=== PATIENT | male | born 1945 | race Caucasian/White ===

== ENCOUNTER 2019-03-01 13:24 | Inpatient (IN) ==
[~2019-03-01 13:24] MED LIST: Insulin NPH 100 UNIT/ML (x5UNIT) SQ SCH
[2019-03-01] MEDS ORDERED: 0.9 % Sodium Chloride 1,000 ML IVC ONE (14:08)
--- NOTE | 2019-03-01 14:13 | Emergency Department Note ---
Disposition Clinical Impression: Acute febrile illness, Weakness generalized Disposition: Home, Self-Care Condition: Fair Referrals: NONE,PCP [Non-Partnered Physician] - Forms: ED Satisfaction Letter Time of Disposition: 16:25 Weakness HPI - General Chief complaint: ED Weakness Stated complaint: weakness Time Seen by Provider: 03/01/19 14:00 Source: patient, family Mode of arrival: private vehicle Limitations: no limitations Nursing Notes Reviewed: Yes Vital Signs Reviewed: Yes - History of Present Illness Pt Subjective Complaint: generalized weakness/fatigue Onset (ago): day(s) (This is the third day) Duration: constant, gradually worsening Location: generalized Pain Severity: none Pain Scale: 0 Improves with: none Worsens with: exertion Associated symptoms: Reports: fever/chills (Has not noted any fevers at home but complains of chills. This morning had an episode of diffuse body shaking that he could not control. This was witnessed by family members.) - Related Data Allergies Allergy/AdvReac Type Severity Reaction Status Date / Time Unable to Assess Allergy Unverified 03/01/19 14:38 All systems ED: reviewed and negative except as stated. Constitutional: Reports: chills. Denies: fever ENT ED: Denies: ear pain, throat pain, congestion Cardiovascular: Denies: chest pain, palpitations, dyspnea on exertion Respiratory: Denies: cough, dyspnea Gastrointestinal: Denies: abdominal pain, nausea, vomiting, diarrhea Genitourinary: Reports: frequency Musculoskeletal: Denies: back pain Integumentary: Denies: rash Neurological: Reports: weakness (Generalized). Denies: headache Past Medical History - Past Medical History Attestation: Yes The following information was validated with the patient. Source: patient, old records reviewed, obtained from family, nursing notes reviewed Medical history: Reports: diabetes, myocardial infarction, other Psychiatric history: Reports: no psych history - Social History Smoking Status: Former smoker Smokeless Tobacco Status: No Alcohol use: Reports: rarely Drug use: Reports: none Physical Exam - General General appearance: alert, in no apparent distress - Head Head exam: atraumatic, normocephalic, normal inspection - Eye Eye exam: Present: normal appearance, PERRL, EOMI. Absent: scleral icterus, conjunctival injection - ENT ENT exam: normal exam, normal oropharynx, mucous membranes moist, TM's normal bilaterally, normal external ear exam - Neck Neck exam: Present: normal inspection, full ROM, trachea midline. Absent: tenderness, meningismus - Chest Chest inspection: Present: normal inspection, symmetric chest wall rise. Absent: tenderness - Respiratory Respiratory exam: Present: normal lung sounds bilaterally. Absent: respiratory distress, wheezes - Cardiovascular Cardiovascular exam: Present: normal rhythm, tachycardia, normal heart sounds - Abdominal Exam Abdominal exam: Present: soft, tenderness, normal bowel sounds. Absent: distention Abdominal tenderness: Present: LUQ, moderate - Extremities Exam Extremities exam: Present: normal inspection. Absent: pedal edema - Neurological Exam Neurological exam: Present: alert, oriented X3. Absent: motor sensory deficit - Psychiatric Psychiatric exam: Present: normal affect, normal mood - Skin Skin exam: Present: warm, dry. Absent: rash Course Course Narrative: Patient presents with generalized weakness over the past 3 days. Briskly worsening. Yesterday he had a hard time getting himself out of bed. This morning he said he could not get himself out of bed, although he did ambulate here with a cane. This morning he had what sounds like rigors. He does not complain of any focus of an infection other than having increased urinary freque ncy. He says he did urinate on himself in bed yesterday but it was because he felt too weak to get up and get to the bathroom. I am going to give him some IV fluids. I am going to do a weakness workup. I will CT his abdomen because although he complained of no abdominal pain, he had left upper quadrant tenderness on examination. Disposition will be based on diagnostic results and reevaluation. - Reevaluation(s) Reevaluation #1: Rectal temperature turned out to be 102.2. We will continue evaluation for source of infection. Time: 14:19 Reevaluation #2: Patient's workup has come back negative. Except for elevated lactate of 3.3. X-ray is clear. Somehow the urinalysis is negative although the patient's urine was cloudy and smelled and is got fever and chills and urinary symptoms and left-sided CVA tenderness. I talked with the hospitalist and we are to admit the patient to the hospital because he is so weak he is not able to get up and go to the bathroom so that he is urinating on himself so he definitely needs to be admitted and watched. Perhaps cultures will reveal answers. Time: 16:25 - Consultations Consultation #1: Dr. Sears, hospitalist - I discussed case with the hospitalist. That the patient for admission. Time: 16:24 Vital Signs Temperature 98.5 F 03/01/19 13:27 Pulse Rate 113 03/01/19 13:27 Respiratory Rate 22 03/01/19 13:27 Blood Pressure 182/67 03/01/19 13:27 O2 Sat by Pulse Oximetry 95 03/01/19 13:27 Temperature 98.5 F 03/01/19 13:27 Pulse Rate 103 03/01/19 15:59 Respiratory Rate 22 03/01/19 15:59 Blood Pressure 104/67 03/01/19 15:59 O2 Sat by Pulse Oximetry 96 03/01/19 15:59 Oxygen Delivery Oxygen Delivery Room Air Weakness - Medical Records Medical records reviewed: Yes I reviewed the patient's medical records. - Lab Data Lab results reviewed: Yes I reviewed the patient's lab results. Result diagrams: 03/01/19 14:35 03/01/19 14:35 Lab Results 03/01/19 03/01/19 03/01/19 Range/Units 14:35 14:35 14:35 WBC 6.5 (4.3-11.1) K/mcL RBC 5.19 (4.19-5.50) M/mcL Hgb 15.1 (12.9-16.9) g/dL Hct 45.3 (37.5-50.1) % MCV 87.3 (83.0-100.0) fL MCH 29.1 (28.0-33.3) pg MCHC 33.3 (31.6-35.5) g/dL RDW 14.6 H (11.5-14.5) % Plt Count 136 L (140-400) K/mcL MPV 10.1 (9.4-12.4) fL Immature Gran % 0.5 (0-4) % Seg Neutrophils % 76.4 % Lymphocytes % 9.9 % Monocytes % 12.7 % Eosinophils % 0.2 % Basophils % 0.3 % Neutrophils # 4.9 (1.6-8.9) K/mcL Lymphocytes # 0.6 (0.6-4.6) K/mcL Monocytes # 0.8 (0.0-1.3) K/mcL Eosinophils # 0.0 (0.0-0.6) K/mcL Basophils # 0.0 (0.0-0.2) K/mcL Sodium 132 L (136-145) mEq/L Potassium 3.9 (3.5-5.1) mEq/L Chloride 95 L (98-107) mEq/L Carbon Dioxide 25 (23-29) mEq/L BUN 15 (8-23) mg/dL Creatinine 1.00 (0.70-1.30) mg/dL Est GFR ( Amer) > 60 (> 60) Est GFR (Non-Af Amer) > 60 (> 60) BUN/Creatinine Ratio 15 (6-26) Glucose 259 H (70-105) mg/dL Calculated Osmolality 284 (280-300) Lactic Acid (0.5-2.2) mmol/L Calcium 9.7 (8.6-10.3) mg/dL Total Bilirubin 1.4 H (0.3-1.0) mg/dL Direct Bilirubin 0.3 H (0.0-0.2) mg/dL Indirect Bilirubin 1.1 (0.0-1.2) mg/dL AST 38 (13-39) Units/L ALT 69 H (7-52) Units/L Alkaline Phosphatase 50 (34-104) Units/L Troponin I (< 0.04) ng/mL B-Natriuretic Peptide 66 (Less than 100) pg/mL Serum Total Protein 7.5 (6.4-8.9) g/dL Albumin 3.6 (3.5-5.7) g/dL Globulin 3.9 H (2.4-3.5) g/dL Albumin/Globulin Ratio 0.9 L (1.1-2.2) Lipase (11-82) Units/L Urine Color (Yellow) Urine Clarity (Clear) Urine pH (5.0-8.0) pH Units Ur Specific [place] (1.010-1.025) Urine Protein (Neg-Trace) mg/dL Urine Glucose (UA) (Normal) mg/dL Urine Ketones (Negative) mg/dL Urine Blood (Negative) Urine Nitrite (Negative) Urine Bilirubin (Negative) Urine Urobilinogen (Normal) mg/dL Ur Leukocyte Esterase (Negative) Ur Culture Indicated? (NO) 03/01/19 03/01/19 03/01/19 Range/Units 14:35 14:35 14:59 WBC (4.3-11.1) K/mcL RBC (4.19-5.50) M/mcL Hgb (12.9-16.9) g/dL Hct (37.5-50.1) % MCV (83.0-100.0) fL MCH (28.0-33.3) pg MCHC (31.6-35.5) g/dL RDW (11.5-14.5) % Plt Count (140-400) K/mcL MPV (9.4-12.4) fL Immature Gran % (0-4) % Seg Neutrophils % % Lymphocytes % % Monocytes % % Eosinophils % % Basophils % % Neutrophils # (1.6-8.9) K/mcL Lymphocytes # (0.6-4.6) K/mcL Monocytes # (0.0-1.3) K/mcL Eosinophils # (0.0-0.6) K/mcL Basophils # (0.0-0.2) K/mcL Sodium (136-145) mEq/L Potassium (3.5-5.1) mEq/L Chloride (98-107) mEq/L Carbon Dioxide (23-29) mEq/L BUN (8-23) mg/dL Creatinine (0.70-1.30) mg/dL Est GFR ( Amer) (> 60) Est GFR (Non-Af Amer) (> 60) BUN/Creatinine Ratio (6-26) Glucose (70-105) mg/dL Calculated Osmolality (280-300) Lactic Acid 3.3 H (0.5-2.2) mmol/L Calcium (8.6-10.3) mg/dL Total Bilirubin (0.3-1.0) mg/dL Direct Bilirubin (0.0-0.2) mg/dL Indirect Bilirubin (0.0-1.2) mg/dL AST (13-39) Units/L ALT (7-52) Units/L Alkaline Phosphatase (34-104) Units/L Troponin I < 0.03 (< 0.04) ng/mL B-Natriuretic Peptide (Less than 100) pg/mL Serum Total Protein (6.4-8.9) g/dL Albumin (3.5-5.7) g/dL Globulin (2.4-3.5) g/dL Albumin/Globulin Ratio (1.1-2.2) Lipase 26 (11-82) Units/L Urine Color Yellow (Yellow) Urine Clarity Clear (Clear) Urine pH 5.5 (5.0-8.0) pH Units Ur Specific [place] 1.020 (1.010-1.025) Urine Protein Negative (Neg-Trace) mg/dL Urine Glucose (UA) 500 H (Normal) mg/dL Urine Ketones Negative (Negative) mg/dL Urine Blood Negative (Negative) Urine Nitrite Negative (Negative) Urine Bilirubin Negative (Negative) Urine Urobilinogen Normal (Normal) mg/dL Ur Leukocyte Esterase Negative (Negative) Ur Culture Indicated? NO (NO) - Radiology Data Radiology results reviewed: Yes I reviewed the patient's radiology results. - EKG Data EKG attestation: Yes I reviewed and interpreted this EKG. EKG results narrative: Twelve-lead EKG performed at 1:43 PM. Ordered, reviewed and interpreted by ED physician shows sinus tachycardia at a rate of 1:15. Normal axis. Good hour progression across the precordium. No acute ischemic changes. Intervals are within normal limits. There is a pretty erratic baseline secondary to the patient tremors.
[2019-03-01 14:44] LABS: Basophils % 0.3 %; Eosinophils % 0.2 %; Hematocrit 45.3 % (37.5-50.1); Hemoglobin 15.1 g/dL (12.9-16.9); Immature Granulocytes % 0.5 % (0-4); Lymphocytes # 0.6 K/mcL (0.6-4.6); Lymphocytes % 9.9 %; Mean Corpuscular HGB Conc 33.3 g/dL (31.6-35.5); Mean Corpuscular Hemoglobin 29.1 pg (28.0-33.3); Mean Corpuscular Volume 87.3 fL (83.0-100.0); Mean Platelet Volume 10.1 fL (9.4-12.4); Monocytes # 0.8 K/mcL (0.0-1.3); Monocytes % 12.7 %; Neutrophils # 4.9 K/mcL (1.6-8.9); Platelet Count 136 K/mcL (140-400); Red Blood Count 5.19 M/mcL (4.19-5.50); Red Cell Distribution Width 14.6 % (11.5-14.5); Segmented Neutrophils % 76.4 %; White Blood Count 6.5 K/mcL (4.3-11.1)
[2019-03-01 15:03] LABS: Lipase 26 Units/L (11-82); Troponin I < 0.03 ng/mL (< 0.04)
[2019-03-01 15:04] LABS: Alanine Aminotransferase 69 Units/L (7-52); Albumin 3.6 g/dL (3.5-5.7); Albumin/Globulin Ratio 0.9 (1.1-2.2); Alkaline Phosphatase 50 Units/L (34-104); Aspartate Amino Transferase 38 Units/L (13-39); BUN/Creatinine Ratio 15 (6-26); Bilirubin,Direct 0.3 mg/dL (0.0-0.2); Bilirubin,Indirect 1.1 mg/dL (0.0-1.2); Bilirubin,Total 1.4 mg/dL (0.3-1.0); Blood Urea Nitrogen 15 mg/dL (8-23); Calcium 9.7 mg/dL (8.6-10.3); Carbon Dioxide 25 mEq/L (23-29); Chloride 95 mEq/L (98-107); Globulin 3.9 g/dL (2.4-3.5); Glucose 259 mg/dL (70-105); Osmolality,Calculated 284 (280-300); Potassium 3.9 mEq/L (3.5-5.1); Sodium 132 mEq/L (136-145); Total Protein 7.5 g/dL (6.4-8.9); eGFR For African Americans > 60 (> 60); eGFR For Non-African Americans > 60 (> 60)
[2019-03-01 15:05] LABS: Bilirubin,Urine Negative (Negative); Blood,Urine Negative (Negative); Clarity,Urine Clear (Clear); Color,Urine Yellow (Yellow); Glucose,Urine (UA) 500 mg/dL (Normal); Ketones,Urine Negative (Negative); Leukocyte Esterase,Urine Negative (Negative); Nitrite,Urine Negative (Negative); PH,Urine 5.5 pH Units (5.0-8.0); Protein,Urine Negative (Neg-Trace); Urobilinogen,Urine Normal (Normal)
[2019-03-01] MEDS ORDERED: Naloxone 0.4 MG/ML INJ IVP PRN (17:18)
[2019-03-01] MEDS: 0.9 % Sodium Chloride 1,000 ML IVC SCH (18:14)
--- NOTE | 2019-03-01 19:45 | Internal Med History&Physical ---
Date of Encounter: 03/01/19 Time of Encounter: 19:10 Assessment and Plan (1) Acute febrile illness Current visit: Yes Status: Acute Suspect viral etiology. Pro-calcitonin level will be checked. He was given Rocephin in emergency room. Recheck labs in a.m. (2) DM type 2 (diabetes mellitus, type 2) Current visit: Yes Status: Acute Hemoglobin A1c was 12.1% on 02/01/2019. Continue Glucotrol, NPH insulin, and Glucophage. 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 (4) Hyperlipidemia Current visit: Yes Status: Acute Continue statin Qualifiers: Hyperlipidemia type: unspecified Qualified Code(s): E78.5 - Hyperlipidemia, unspecified (5) ASHD (arteriosclerotic heart disease) Current visit: Yes Status: Acute Continue Toprol-XL, Imdur, aspirin, and Plavix (6) Gout Current visit: Yes Status: Chronic Check uric acid level in a.m. Qualifiers: Gout site: unspecified site Gout etiology: unspecified cause Chronicity: chronic Presence of tophus: without tophus Qualified Code(s): M1A.9XX0 - Chronic gout, unspecified, without tophus (tophi) (7) BPH (benign prostatic hyperplasia) Current visit: Yes Status: Chronic Continue Proscar Qualifiers: Lower urinary tract symptom presence: symptoms present Lower urinary tract symptom detail: urinary frequency Qualified Code(s): N40.1 - Benign prostatic hyperplasia with lower urinary tract symptoms; R35.0 - Frequency of micturition Internal Medicine - H&P: HPI Chief complaint: Weakness Admitted From: Emergency Dept Plans for Post Hospital Care: Home History of present illness: Mr. Barton is a 73 year old male who came to emergency room stating he had weakness onset morning of February 26. 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 He gently let himself down on the floor and crawled over to a chest of drawers and used it to help obtain an upright position. He felt very unstable and weak but improved enough over the next few hours to ambulate minimally in the house. Symptoms did not significantly improve over the next 2 days. He finally consented to come to emergency room. He was evaluated and found to have temperature of 102.6 shortly after arrival to ER. He was admitted [facility] floor for ongoing care needs. He denies pain. He states he does not feel dyspneic at the present time. He denies previous similar episodes or known strokes or seizures. He states he feels slightly stronger at present time. 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 Psychiatric history: no psych history - Social History Smoking Status: Former smoker Smokeless Tobacco Status: No Alcohol use: rarely Drug use: none Internal Medicine - H&P: Meds Aspirin [Adult Aspirin] 81 mg DAILY 03/01/19 [History] Atorvastatin [Lipitor] 80 mg PO HS 03/01/19 [History] Clopidogrel [Plavix] 75 mg PO DAILY 03/01/19 [History] DiphenhydraMINE [Benadryl] 25 mg PO HS PRN 03/01/19 [History] Fenofibrate Nanocrystallized [Fenofibrate] 160 mg PO DAILY 03/01/19 [History] Finasteride [Proscar] 5 mg PO DAILY 03/01/19 [History] Furosemide [Lasix] 40 mg PO DAILY 03/01/19 [History] GlipiZIDE [Glucotrol] 5 mg PO BIDWM 03/01/19 [History] Insulin NPH [HumuLIN NPH] 23 unit SQ BIDWM 03/01/19 [History] Isosorbide MONOnitrate [Isosorbide Mononitrate ER] 30 mg PO DAILY 03/01/19 [History] Losartan [Cozaar] 50 mg PO DAILY 03/01/19 [History] Metoprolol Succinate [Toprol Xl] 100 mg PO BID 03/01/19 [History] Nitroglycerin [Nitrostat] 0.4 mg SL Q5MIN MDD 3 doses 03/01/19 [History] Potassium Chloride [K-Tab ER] 40 meq PO DAILY 03/01/19 [History] Spironolactone [Aldactone] 25 mg PO DAILY 03/01/19 [History] Vitamin E 400 unit PO DAILY 03/01/19 [History] hydrALAZINE [HydrALAZINE] 10 mg PO TID 03/01/19 [History] metFORMIN [Glucophage] 1,000 mg PO BIDWM 03/01/19 [History] Allergy/AdvReac Type Severity Reaction Status Date / Time No Known Allergies Allergy Verified 03/01/19 18:46 All Systems PM: A 10-system review of systems was performed and is negative for pertinent findings except as documented above in the HPI. 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 He reports his most recent heart cath was at [facility] May 2018 with stents placed. He is uncertain if he has a diagnosis of heart failure. He denies known DVT or pulmonary embolus. Respiratory: He smoked from age [age] up to one and a half packs per day. PFTs 11/14/2017 showed FVC 69% predicted, FEV1 71% predicted, FEV1/FVC 75%, MVV 42% predicted, and DLCO (uncorrected) 94% predicted. There was insignificant improvement in FVC and FEV1 postbronchodilator. He does not use home oxygen. GI: He has nonalcoholic fatty liver disease. He denies other disorders of his liver gallbladder or exocrine pancreas : He had kidney stones several years ago without recurrence. He has urinary incontinence. He denies other kidney prostate or bladder disorders. Neurologic: As per history of present illness Endocrine: He was diagnosed with DM 2 approximately age 53. He has hyperlipidemia. He denies known thyroid disease. Hematology/oncology: He denies blood disorders cancers or anemia Psychiatric: He denies anxiety depression or other mental health issues [place] skeletal: He has history of DJD and gout. He denies other bone joint or muscle disorders. - Constitutional Vitals: Temp Pulse Resp BP Pulse Ox 98.9 F 120 17 108/61 94 03/01/19 18:28 03/01/19 18:28 03/01/19 18:28 03/01/19 18:28 03/01/19 18:28 Exam: Gen.: He is a well-developed well-nourished male resting comfortably in bed who appears in no acute distress HEENT: Head is atraumatic and normocephalic. Eyes: EOMI. There is no scleral icterus. Mouth: Mucosa is moist. Neck: Supple and nontender. There is no thyromegaly or adenopathy noted. Heart: Regular without murmurs gallops or ectopics Lungs: No wheezes or crackles are heard. Abdomen: Soft and nontender. No masses or guarding are noted. Extremities: There is no cyanosis edema or clubbing noted. Dorsalis pedis and posterior tibial pulses are trace to 1+ palpable bilaterally. Neurologic: Mental status: He is talkative and a good historian. Cranial nerves: Smile is symmetric. Forehead wrinkles bilaterally. Tongue protrudes midline. EOMI. Motor: There is no pronator drift. Lead Generation Representative strength is strong and symmetric bilaterally. He is able to lift both legs off the bed on straight le g raising maneuver. Ankle flexion and extension strength against resistance is 2/2 bilaterally. Cerebellar: Finger to nose is intact bilaterally. Skin: Warm and dry Internal Med - H&P Results - Labs CBC & Chem 7: 03/01/19 14:35 03/01/19 14:35 Labs: Short CBC 03/01/19 Range/Units 14:35 WBC 6.5 (4.3-11.1) K/mcL Hgb 15.1 (12.9-16.9) g/dL Hct 45.3 (37.5-50.1) % Plt Count 136 L (140-400) K/mcL Neutrophils # 4.9 (1.6-8.9) K/mcL BMP 03/01/19 14:35 Sodium 132 L Potassium 3.9 Chloride 95 L Carbon Dioxide 25 BUN 15 Creatinine 1.00 Glucose 259 H Calcium 9.7 Cardiac Enzymes 03/01/19 03/01/19 Range/Units 14:35 18:00 Troponin I < 0.03 0.03 (< 0.04) ng/mL Liver Function 03/01/19 Range/Units 14:35 Total Bilirubin 1.4 H (0.3-1.0) mg/dL Direct Bilirubin 0.3 H (0.0-0.2) mg/dL AST 38 (13-39) Units/L ALT 69 H (7-52) Units/L Alkaline Phosphatase 50 (34-104) Units/L Albumin 3.6 (3.5-5.7) g/dL Urine 03/01/19 Range/Units 14:59 Urine Color Yellow (Yellow) Urine Clarity Clear (Clear) Urine pH 5.5 (5.0-8.0) pH Units Ur Specific [place] 1.020 (1.010-1.025) Urine Protein Negative (Neg-Trace) mg/dL Urine Glucose (UA) 500 H (Normal) mg/dL - Impressions ITS Impressions Chest X-Ray 03/01/19 14:07 IMPRESSION: No definite radiographic evidence of acute cardiopulmonary disease. Suboptimal AP lordotic chest radiograph obtained during expiratory phase of respiration. Follow-up full inspiration PA and lateral chest may be useful for better characterization of pulmonary findings. D/ / Dipak Pastor / Dipak Pastor Interpreting Provider: Dipak Pastor Abdomen/Pelvis CT 03/01/19 14:08 IMPRESSION: 1. No CT evidence of an acute intra-abdominal or intrapelvic process. 2. Mild hepatomegaly and fatty liver. 3. 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 4. Calcific atherosclerosis aorta. 5. Diverticulosis coli without CT evidence of acute diverticulitis. D/ / Dipak Pastor / Dipak Pastor Interpreting Provider: Dipak Pastor
[2019-03-01] MEDS: Insulin NPH 100 UNIT/ML (x5UNIT) SQ SCH (22:21)
[2019-03-02] MEDS: 0.9 % Sodium Chloride 1,000 ML IVC SCH (04:34)
[2019-03-02 06:41] LABS: Hematocrit 38.4 % (37.5-50.1); Hemoglobin 12.7 g/dL (12.9-16.9); Mean Corpuscular HGB Conc 33.1 g/dL (31.6-35.5); Mean Corpuscular Volume 87.7 fL (83.0-100.0); Mean Platelet Volume 9.9 fL (9.4-12.4); Platelet Count 115 K/mcL (140-400); Red Blood Count 4.38 M/mcL (4.19-5.50); Red Cell Distribution Width 14.5 % (11.5-14.5); White Blood Count 5.3 K/mcL (4.3-11.1)
[2019-03-02 07:10] LABS: BUN/Creatinine Ratio 16 (6-26); Blood Urea Nitrogen 12 mg/dL (8-23); Calcium 8.5 mg/dL (8.6-10.3); Carbon Dioxide 26 mEq/L (23-29); Chloride 101 mEq/L (98-107); Glucose 234 mg/dL (70-105); Osmolality,Calculated 285 (280-300); Potassium 3.8 mEq/L (3.5-5.1); Sodium 134 mEq/L (136-145); eGFR For African Americans > 60 (> 60); eGFR For Non-African Americans > 60 (> 60)
[2019-03-02 07:11] LABS: Magnesium 1.9 mg/dL (1.6-2.6); Phosphorous 1.7 mg/dL (2.7-4.5); Uric Acid 2.5 mg/dL (2.3-7.6)
[2019-03-02] MEDS: Aspirin 81 MG TAB.CHEW PO SCH (08:06)
[2019-03-02] MEDS: Isosorbide MONOnitrate (24 HR) 30 MG TAB.ER.24H PO SCH (08:06)
[2019-03-02] MEDS: Metoprolol XL (24 HR) Succ 50 MG TAB.ER.24H PO SCH (08:06)
[2019-03-02] MEDS: *HR* Metformin 500 MG TABLET PO SCH ×2 (08:07→17:15)
[2019-03-02] MEDS: Finasteride 5 MG TABLET PO SCH (08:07)
[2019-03-02] MEDS: GlipiZIDE 5 MG TABLET PO SCH ×2 (08:07→17:15)
[2019-03-02] MEDS: Insulin NPH 100 UNIT/ML (x5UNIT) SQ SCH ×2 (08:08→20:55)
[2019-03-02] MEDS: Fenofibrate 54 MG TABLET PO SCH (08:12)
[2019-03-02] MEDS ORDERED: Furosemide 40 MG TABLET PO SCH (09:00)
[2019-03-02] MEDS ORDERED: Spironolactone 25 MG TABLET PO SCH (09:00)
--- NOTE | 2019-03-02 10:26 | Internal Med Progress Note ---
Date of Encounter: 03/02/19 Time of Encounter: 10:15 - Assessment and plan (1) Acute febrile illness Current Visit: Yes Status: Acute Assessment and plan: March 02. WBC remained normal. He remains afebrile. Pro-calcitonin level pending. Continue to monitor without additional antibiotics. (2) DM type 2 (diabetes mellitus, type 2) Current Visit: Yes Status: Acute Assessment and plan: March 02. Hemoglobin A1c was 12.1% on 02/01/2019. Continue Glucotrol, NPH insulin, and Glucophage. 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 Monitor LFTs. (4) Hyperlipidemia Current Visit: Yes Status: Acute Assessment and plan: March 02. Continue statin Qualifiers: Hyperlipidemia type: unspecified Qualified Code(s): E78.5 - Hyperlipidemia, unspecified (5) ASHD (arteriosclerotic heart disease) Current Visit: Yes Status: Acute Assessment and plan: March 02. Continue Toprol-XL, Imdur, aspirin, and Plavix (6) Gout Current Visit: Yes Status: Chronic Assessment and plan: March 02. Uric acid level satisfactory at 2.5. Qualifiers: Gout site: unspecified site Gout etiology: unspecified cause Chronicity: chronic Presence of tophus: without tophus Qualified Code(s): M1A.9XX0 - Chronic gout, unspecified, without tophus (tophi) (7) BPH (benign prostatic hyperplasia) Current Visit: Yes Status: Chronic Assessment and plan: March 02. Continue Proscar Qualifiers: Lower urinary tract symptom presence: symptoms present Lower urinary tract symptom detail: urinary frequency Qualified Code(s): N40.1 - Benign prostatic hyperplasia with lower urinary tract symptoms; R35.0 - Frequency of micturition (8) Anemia Current Visit: Yes Status: Acute Assessment and plan: March 02. Hemoglobin decreased to 12.7 today. Check anemia testing in a.m. Qualifiers: Anemia type: unspecified type Qualified Code(s): D64.9 - Anemia, unspe cified (9) Hypophosphatemia Current Visit: Yes Status: Acute Assessment and plan: March 02. Suspect due to diuretic use. Lasix and Aldactone will be held for now. Check PTH and vitamin D level. Neutra-Phos will be given. - Subjective Interval history: March 02. He has no new complaints and feels stronger. He was able to ablate to the bathroom without unsteadiness. - Constitutional Vitals: Temp Pulse Resp BP Pulse Ox 98.4 F 98 18 121/67 93 03/02/19 06:27 03/02/19 06:27 03/02/19 06:27 03/02/19 06:27 03/02/19 06:27 Exam: He is resting comfortably in a chair at bedside and appears in no acute distress. His affect is cheerful. I reviewed his medications and lab results. Internal Medicine: Result - Labs CBC & Chem 7: 03/02/19 06:25 03/02/19 06:25 Labs: Short CBC 03/01/19 03/02/19 Range/Units 14:35 06:25 WBC 6.5 5.3 (4.3-11.1) K/mcL Hgb 15.1 12.7 L D (12.9-16.9) g/dL Hct 45.3 38.4 (37.5-50.1) % Plt Count 136 L 115 L (140-400) K/mcL Neutrophils # 4.9 (1.6-8.9) K/mcL BMP 03/01/19 03/02/19 14:35 06:25 Sodium 132 L 134 L Potassium 3.9 3.8 Chloride 95 L 101 Carbon Dioxide 25 26 BUN 15 12 Creatinine 1.00 0.76 Glucose 259 H 234 H Calcium 9.7 8.5 L Cardiac Enzymes 03/01/19 03/01/19 03/02/19 Range/Units 14:35 18:00 01:25 Troponin I < 0.03 0.03 < 0.03 (< 0.04) ng/mL 03/02/19 Range/Units 06:25 Troponin I 0.03 (< 0.04) ng/mL Liver Function 03/01/19 Range/Units 14:35 Total Bilirubin 1.4 H (0.3-1.0) mg/dL Direct Bilirubin 0.3 H (0.0-0.2) mg/dL AST 38 (13-39) Units/L ALT 69 H (7-52) Units/L Alkaline Phosphatase 50 (34-104) Units/L Albumin 3.6 (3.5-5.7) g/dL Urine 03/01/19 Range/Units 14:59 Urine Color Yellow (Yellow) Urine Clarity Clear (Clear) Urine pH 5.5 (5.0-8.0) pH Units Ur Specific [place] 1.020 (1.010-1.025) Urine Protein Negative (Neg-Trace) mg/dL Urine Glucose (UA) 500 H (Normal) mg/dL - Impressions Impressions Chest X-Ray 03/01/19 14:07 IMPRESSION: No definite radiographic evidence of acute cardiopulmonary disease. Suboptimal AP lordotic chest radiograph obtained during expiratory phase of respiration. Follow-up full inspiration PA and lateral chest may be useful for better characterization of pulmonary findings. D/ / Dipak Pastor / Dipak Pastor Interpreting Provider: Dipak Pastor Abdomen/Pelvis CT 03/01/19 14:08 IMPRESSION: 1. No CT evidence of an acute intra-abdominal or intrapelvic process. 2. Mild hepatomegaly and fatty liver. 3. 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 4. Calcific atherosclerosis aorta. 5. Diverticulosis coli without CT evidence of acute diverticulitis. D/ / Dipak Pastor / Dipak Pastor Interpreting Provider: Dipak Pastor Consult Discharge Plan - Plan Referrals: Rico Esparza MD [Primary Care Provider] - 1 week
[2019-03-02 12:37] LABS: Acinetobacter baumannii by PCR Not Detected (Not Detect); Candida albicans by PCR Not Detected (Not Detect); Candida glabrata by PCR Not Detected (Not Detect); Candida krusei by PCR Not Detected (Not Detect); Candida parapsilosis by PCR Not Detected (Not Detect); Candida tropicalis by PCR Not Detected (Not Detect); Enterobacter cloacae Cmplx PCR DETECTED (Not Detect); Enterobacteriaceae by PCR DETECTED (Not Detect); Enterococcus by PCR Not Detected (Not Detect); Escherichia coli by PCR Not Detected (Not Detect); Klebsiella oxytoca by PCR Not Detected (Not Detect); Klebsiella pneumoniae by PCR Not Detected (Not Detect); Proteus by PCR Not Detected (Not Detect); Pseudomonas aeruginosa by PCR Not Detected (Not Detect); Serratia marcescens by PCR Not Detected (Not Detect); Staphylococcus aureus by PCR Not Detected (Not Detect); Staphylococcus by PCR Not Detected (Not Detect); Streptococcus agalactiae(B)PCR Not Detected (Not Detect); Streptococcus by PCR Not Detected (Not Detect); Streptococcus pneumoniae PCR Not Detected (Not Detect); Streptococcus pyogenes (A) PCR Not Detected (Not Detect); blaKPC Carbapenem-Resist Gene Not Detected (Not Detect)
[2019-03-02] MEDS: cefTRIAXone 1,000 MG in Water for inj. (sterile) 10 ML IVP SCH (15:39)
[2019-03-02] MEDS: levoFLOXacin 750 MG/150 ML 750 MG/150 ML BAG IVPB SCH (15:41)
[2019-03-02] MEDS: Lactobacillus 1 EACH CAP.SPRINK PO SCH (20:54)
--- NOTE | 2019-03-02 22:39 | Electrocardiograph Report ---
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
[2019-03-03] MEDS: *HR* Enoxaparin 40 MG/0.4 ML SYRINGE SQ SCH (05:24)
[2019-03-03 07:06] LABS: Basophils % 0.2 %; Eosinophils % 0.2 %; Hematocrit 39.9 % (37.5-50.1); Hemoglobin 13.1 g/dL (12.9-16.9); Immature Granulocytes % 0.4 % (0-4); Lymphocytes # 1.4 K/mcL (0.6-4.6); Lymphocytes % 29.7 %; Mean Corpuscular HGB Conc 32.8 g/dL (31.6-35.5); Mean Corpuscular Volume 88.3 fL (83.0-100.0); Mean Platelet Volume 10.8 fL (9.4-12.4); Monocytes # 0.9 K/mcL (0.0-1.3); Monocytes % 18.8 %; Neutrophils # 2.4 K/mcL (1.6-8.9); Platelet Count 121 K/mcL (140-400); Red Blood Count 4.52 M/mcL (4.19-5.50); Red Cell Distribution Width 14.6 % (11.5-14.5); Segmented Neutrophils % 50.7 %; White Blood Count 4.7 K/mcL (4.3-11.1)
[2019-03-03 08:23] LABS: Platelet Estimate Decreased (Normal)
[2019-03-03 08:31] LABS: Alanine Aminotransferase 48 Units/L (7-52); Albumin 3.3 g/dL (3.5-5.7); Alkaline Phosphatase 41 Units/L (34-104); Aspartate Amino Transferase 45 Units/L (13-39); BUN/Creatinine Ratio 14 (6-26); Bilirubin,Total 0.7 mg/dL (0.3-1.0); Blood Urea Nitrogen 11 mg/dL (8-23); Calcium 9.1 mg/dL (8.6-10.3); Carbon Dioxide 29 mEq/L (23-29); Chloride 100 mEq/L (98-107); Globulin 3.4 g/dL (2.4-3.5); Glucose 250 mg/dL (70-105); Osmolality,Calculated 288 (280-300); Phosphorous 2.4 mg/dL (2.7-4.5); Potassium 4.9 mEq/L (3.5-5.1); Sodium 135 mEq/L (136-145); Total Protein 6.7 g/dL (6.4-8.9); eGFR For African Americans > 60 (> 60); eGFR For Non-African Americans > 60 (> 60)
[2019-03-03 09:28] LABS: % Iron Saturation 5 % (20-55); Ferritin 105 ng/mL (20-250); Iron 17 mcg/dL (65-175); Transferrin 233 mg/dL (203-362)
[2019-03-03 09:33] LABS: Folate 14.6 ng/mL (3.0-16.0)
[2019-03-03] MEDS: levoFLOXacin 750 MG/150 ML 750 MG/150 ML BAG IVPB SCH (10:38)
[2019-03-03] MEDS: Metoprolol XL (24 HR) Succ 50 MG TAB.ER.24H PO SCH (10:43)
[2019-03-03] MEDS: Lactobacillus 1 EACH CAP.SPRINK PO SCH ×2 (10:43→20:02)
[2019-03-03] MEDS: Aspirin 81 MG TAB.CHEW PO SCH (10:43)
[2019-03-03] MEDS: *HR* Metformin 500 MG TABLET PO SCH ×2 (10:43→15:40)
[2019-03-03] MEDS: GlipiZIDE 5 MG TABLET PO SCH ×2 (10:43→15:40)
[2019-03-03] MEDS: Finasteride 5 MG TABLET PO SCH (10:43)
[2019-03-03] MEDS: Insulin NPH 100 UNIT/ML (x5UNIT) SQ SCH ×2 (10:44→20:09)
[2019-03-03] MEDS: Isosorbide MONOnitrate (24 HR) 30 MG TAB.ER.24H PO SCH (10:44)
[2019-03-03] MEDS: Fenofibrate 54 MG TABLET PO SCH (10:44)
[2019-03-03] MEDS: cefTRIAXone 1,000 MG in Water for inj. (sterile) 10 ML IVP SCH (10:45)
--- NOTE | 2019-03-03 10:47 | Internal Med Progress Note ---
Date of Encounter: 03/03/19 Time of Encounter: 10:25 - Assessment and plan (1) Acute febrile illness Current Visit: Yes Status: Acute Assessment and plan: March 02. WBC remained normal. He remains afebrile. Pro-calcitonin level pending. Continue to monitor without additional antibiotics. March 03. Blood culture returned showing Enterobacter cloacae. Final sensitivity report is pending. He was started on empiric Rocephin and Levaquin IV with lactobacillus yesterday. Pro-calcitonin level was elevated at 1.20 on March 01. Recheck in a.m. (2) DM type 2 (diabetes mellitus, type 2) Current Visit: Yes Status: Acute Assessment and plan: March 02. Hemoglobin A1c was 12.1% on 02/01/2019. Continue Glucotrol, NPH insulin, and Glucophage. March 03. Blood sugars remain above desirable range. Increase NPH insulin to 30 units twice a day. Continue Glucophage and Glucotrol Qualifiers: Diabetes mellitus [employer] insulin use: with intermediate use Diabetes mellitus complication status: with other specified complication Qualified Code(s): E11.69 - Type 2 diabetes mellitus with other specified complication; Z79.4 - skilled nursing (current) use of insulin (3) Fatty liver disease, nonalcoholic Current Visit: Yes Status: Acute Assessment and plan: March 02. Monitor LFTs. (4) Hyperlipidemia Current Visit: Yes Status: Acute Assessment and plan: March 02. Continue statin Qualifiers: Hyperlipidemia type: unspecified Qualified Code(s): E78.5 - Hyperlipidemia, unspecified (5) ASHD (arteriosclerotic heart disease) Current Visit: Yes Status: Acute Assessment and plan: March 02. Continue Toprol-XL, Imdur, aspirin, and Plavix (6) Gout Current Visit: Yes Status: Chronic Assessment and plan: March 02. Uric acid level satisfactory at 2.5. Qualifiers: Gout site: unspecified site Gout etiology: unspecified cause Chronicity: chronic Presence of tophus: without tophus Qualified Code(s): M1A.9XX0 - Chronic gout, unspecified, without tophus (tophi) (7) BPH (benign prostatic hyperplasia) Current Visit: Yes Status: Chronic Assessment and plan: March 02. Continue Proscar Qualifiers: Lower urinary tract symptom presence: symptoms present Lower urinary tract symptom detail: urinary frequency Qualified Code(s): N40.1 - Benign prostatic hyperplasia with lower urinary tract symptoms; R35.0 - Frequency of micturition (8) Anemia Current Visit: Yes Status: Acute Assessment and plan: March 02. Hemoglobin decreased to 12.7 today. Check anemia testing in a.m. March 03. Anemia testing showed iron 17, transferrin saturation 5%, transferrin 233, ferritin 105, B12 251, and folate 14.6. Start oral B12 and ferrous sulfate with ascorbic acid in a.m. Qualifiers: Anemia type: unspecified type Qualified Code(s): D64.9 - Anemia, unspecified (9) Hypophosphatemia Current Visit: Yes Status: Acute Assessment and plan: March 02. Suspect due to diuretic use. Lasix and Aldactone will be held for now. Check PTH and vitamin D level. Neutra-Phos will be given. March 03. Phosphorus level improved to 2.4 today. PTH normal at 33.5. Vitamin D level low at 22. Continue Neutra-Phos and start oral vitamin D. Recheck labs in a.m. - Subjective Interval history: March 02. He has no new complaints and feels stronger. He was able to ablate to the bathroom without unsteadiness. March 03. He has no new complaints and feels better. - Constitutional Vitals: Temp Pulse Resp BP Pulse Ox 97.9 F 94 18 122/64 94 03/03/19 06:50 03/03/19 06:50 03/03/19 06:50 03/03/19 06:50 03/03/19 06:50 Exam: He is resting comfortably in bed and appears in no acute distress. His affect is bright and cheerful. I reviewed his medications and lab results. Internal Medicine: Result - Labs CBC & Chem 7: 03/03/19 06:40 03/03/19 06:40 Labs: Short CBC 03/03/19 Range/Units 06:40 WBC 4.7 (4.3-11.1) K/mcL Hgb 13.1 (12.9-16.9) g/dL Hct 39.9 (37.5-50.1) % Plt Count 121 L (140-400) K/mcL Neutrophils # 2.4 (1.6-8.9) K/mcL BMP 03/03/19 06:40 Sodium 135 L Potassium 4.9 Chloride 100 Carbon Dioxide 29 BUN 11 Creatinine 0.81 Glucose 250 H Calcium 9.1 Liver Function 03/03/19 Range/Units 06:40 Total Bilirubin 0.7 (0.3-1.0) mg/dL AST 45 H (13-39) Units/L ALT 48 (7-52) Units/L Alkaline Phosphatase 41 (34-104) Units/L Albumin 3.3 L (3.5-5.7) g/dL Consult Discharge Plan - Plan Referrals: Rico Esparza MD [Primary Care Provider] - 1 week
[2019-03-03] MEDS: Cholecalciferol (D-3) 1,000 UNIT (25MCG) TABLET PO SCH (12:07)
[2019-03-03] MEDS: Cyanocobalamin (B-12) 1,000 MCG TABLET PO SCH (12:08)
[2019-03-04] MEDS: *HR* Enoxaparin 40 MG/0.4 ML SYRINGE SQ SCH (06:09)
[2019-03-04] MEDS ORDERED: Ascorbic Acid 500 MG TABLET PO SCH (06:30)
[2019-03-04 07:28] VITALS: BP 144/72
[2019-03-04] MEDS: GlipiZIDE 5 MG TABLET PO SCH (08:43)
[2019-03-04] MEDS: Cholecalciferol (D-3) 1,000 UNIT (25MCG) TABLET PO SCH (08:43)
[2019-03-04] MEDS: Finasteride 5 MG TABLET PO SCH (08:44)
[2019-03-04] MEDS: Lactobacillus 1 EACH CAP.SPRINK PO SCH (08:44)
[2019-03-04] MEDS: *HR* Metformin 500 MG TABLET PO SCH (08:44)
[2019-03-04] MEDS: Fenofibrate 54 MG TABLET PO SCH (08:44)
[2019-03-04] MEDS: Aspirin 81 MG TAB.CHEW PO SCH (08:44)
[2019-03-04] MEDS: Cyanocobalamin (B-12) 1,000 MCG TABLET PO SCH (08:45)
[2019-03-04] MEDS: Isosorbide MONOnitrate (24 HR) 30 MG TAB.ER.24H PO SCH (08:45)
[2019-03-04] MEDS: cefTRIAXone 1,000 MG in Water for inj. (sterile) 10 ML IVP SCH (08:45)
[2019-03-04] MEDS: Metoprolol XL (24 HR) Succ 50 MG TAB.ER.24H PO SCH (08:45)
[2019-03-04] MEDS: levoFLOXacin 750 MG/150 ML 750 MG/150 ML BAG IVPB SCH (08:46)
[2019-03-04] MEDS: Insulin NPH 100 UNIT/ML (x5UNIT) SQ SCH (08:46)
--- NOTE | 2019-03-04 11:47 | Discharge Summary ---
Orders not resulted at time of discharge: Pending orders 03/01/19 14:27 Culture,Blood [BC] Stat 03/04/19 07:55 Procalcitonin Routine Date of Encounter: 03/04/19 Time of Encounter: 11:32 - Discharge Diagnosis (1) Bacteremia due to Enterobacter species Priority: Primary Status: Acute (2) DM type 2 (diabetes mellitus, type 2) Priority: Secondary Status: Acute Qualifiers: Diabetes mellitus [facility] insulin use: with [facility] use Diabetes mellitus complication status: with other specified complication Qualified Code(s): E11.69 - Type 2 diabetes mellitus with other specified complication; 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.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 (3) Fatty liver disease, nonalcoholic Priority: Secondary Status: Chronic (4) Hyperlipidemia Priority: Secondary Status: Chronic Qualifiers: Hyperlipidemia type: unspecified Qualified Code(s): E78.5 - Hyperlipidemia, unspecified (5) ASHD (arteriosclerotic heart disease) Priority: Secondary Status: Chronic (6) Gout Priority: Secondary Status: Chronic Qualifiers: Gout site: unspecified site Gout etiology: unspecified cause Chronicity: chronic Presence of tophus: without tophus Qualified Code(s): M1A.9XX0 - Chronic gout, unspecified, without tophus (tophi) (7) BPH (benign prostatic hyperplasia) Priority: Secondary Status: Chronic Qualifiers: Lower urinary tract symptom presence: symptoms present Lower urinary tract symptom detail: urinary frequency Qualified Code(s): N40.1 - Benign prostatic hyperplasia with lower urinary tract symptoms; R35.0 - Frequency of micturition (8) Anemia Priority: Secondary Status: Acute Qualifiers: Anemia type: unspecified type Qualified Code(s): D64.9 - Anemia, unspecified (9) Hypophosphatemia Priority: Secondary Status: Resolved Hospital course: Mr. Barton is a 73 year old male who came to emergency room stating he had weakness onset morning of February 26. 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 He gently let himself down on the floor and crawled over to a chest of drawers and used it to help obtain an upright position. He felt very unstable and weak but improved enough over the next few hours to ambulate minimally in the house. Symptoms did not significantly improve over the next 2 days. He finally consented to come to emergency room. He was evaluated and found to have temperature of 102.6 shortly after arrival to ER. He was admitted to [facility] for ongoing care needs. Initial orders were written by the emergency room physician. I saw him on March 01 and performed a history and physical. He was given IV Rocephin empirically in emergency room. Pro-calcitonin level returned elevated at 1.20. Serology showed Enterobacter cloacae complex by PCR. Enterobacter was also found in a blood culture drawn in emergency room. He continued on Rocephin and Levaquin through his hospital course. WBC remained normal with decreased left shift on differential. He remained afebrile after the first hospital day. Final culture and sensitivity report was obtained on March 04 showing sensitivity to Levaquin. He will be discharged home and continue oral antibiotic with probiotic for 7 additional days at discharge. His PCP can follow up and determine if further antibiotics are needed. Phosphorus level returned low at 1.7. I felt this was likely due to diuretic use. Diuretics were held and he was given supplemental phosphorus orally. Phosphorus level was normal at 2.7 on day of discharge. He will remain off Aldactone. Lasix dose will be reduced to 20 mg daily. His PCP can monitor phosphorus level and other labs. Hemoglobin decrease to 12.7 on March 02. Anemia testing showed iron 17, transferrin saturation 5%, transferrin 233, ferritin 105, B12 251, and folate 14.6. He was started on oral ferrous sulfate with ascorbic acid and B12. These will be continued at discharge. Hemoglobin was normal at 13.1 on March 03. Vitamin D level returned low at 22. He was started on supplemental vitamin D and this will be continued at discharge. He had clinical resolution of weakness and was able to ambulate without difficulty the day of discharge. On March 04 he was discharged home and will follow with his PCP Dr. Rico Esparza within 1 week. - Time Spent with Patient Total time spent providing and/or coordinating discharge services: - Discharge Medications Prescriptions: New Lactobacillus [Culturelle] 1 each PO BID #14 cap.sprink Ferrous Sulfate 325 mg PO 0630 #30 tablet levoFLOXacin [Levaquin] 750 mg PO DAILY #7 tablet Cyanocobalamin (B-12) [Vitamin B12] 1,000 mcg PO DAILY #30 tablet Ascorbic Acid [Vitamin C] 500 mg PO 0630 #30 tablet Cholecalciferol (D-3) [Vitamin D] 1,000 unit PO DAILY #30 tablet Continued Vitamin E 400 unit PO DAILY Finasteride [Proscar] 5 mg PO DAILY Nitroglycerin [Nitrostat] 0.4 mg SL Q5MIN MDD 3 doses Metoprolol Succinate [Toprol Xl] 100 mg PO BID metFORMIN [Glucophage] 1,000 mg PO BIDWM Losartan [Cozaar] 50 mg PO DAILY Isosorbide MONOnitrate [Isosorbide Mononitrate ER] 30 mg PO DAILY hydrALAZINE [HydrALAZINE] 10 mg PO TID GlipiZIDE [Glucotrol] 5 mg PO BIDWM DiphenhydraMINE [Benadryl] 25 mg PO HS PRN PRN Reason: Sleep Clopidogrel [Plavix] 75 mg PO DAILY Atorvastatin [Lipitor] 80 mg PO HS Aspirin [Adult Aspirin] 81 mg DAILY Fenofibrate Nanocrystallized [Fenofibrate] 160 mg PO DAILY Changed Insulin NPH [HumuLIN NPH] 35 unit SQ BIDWM #0 Furosemide [Lasix] 20 mg PO DAILY #0 Discontinued Spironolactone [Aldactone] 25 mg PO DAILY Potassium Chloride [K-Tab ER] 40 meq PO DAILY Home Medications: Aspirin [Adult Aspirin] 81 mg DAILY 03/01/19 [History] Atorvastatin [Lipitor] 80 mg PO HS 03/01/19 [History] Clopidogrel [Plavix] 75 mg PO DAILY 03/01/19 [History] DiphenhydraMINE [Benadryl] 25 mg PO HS PRN 03/01/19 [History] Fenofibrate Nanocrystallized [Fenofibrate] 160 mg PO DAILY 03/01/19 [History] Finasteride [Proscar] 5 mg PO DAILY 03/01/19 [History] GlipiZIDE [Glucotrol] 5 mg PO BIDWM 03/01/19 [History] Isosorbide MONOnitrate [Isosorbide Mononitrate ER] 30 mg PO DAILY 03/01/19 [History] Losartan [Cozaar] 50 mg PO DAILY 03/01/19 [History] Metoprolol Succinate [Toprol Xl] 100 mg PO BID 03/01/19 [History] Nitroglycerin [Nitrostat] 0.4 mg SL Q5MIN MDD 3 doses 03/01/19 [History] Vitamin E 400 unit PO DAILY 03/01/19 [History] hydrALAZINE [HydrALAZINE] 10 mg PO TID 03/01/19 [History] metFORMIN [Glucophage] 1,000 mg PO BIDWM 03/01/19 [History] Ascorbic Acid [Vitamin C] 500 mg PO 0630 #30 tablet 03/04/19 [Rx] Cholecalciferol (D-3) [Vitamin D] 1,000 unit PO DAILY #30 tablet 03/04/19 [Rx] Cyanocobalamin (B-12) [Vitamin B12] 1,000 mcg PO DAILY #30 tablet 03/04/19 [Rx] Ferrous Sulfate 325 mg PO 0630 #30 tablet 03/04/19 [Rx] Furosemide [Lasix] 20 mg PO DAILY #0 03/04/19 [Rx] Insulin NPH [HumuLIN NPH] 35 unit SQ BIDWM #0 03/04/19 [Rx] Lactobacillus [Culturelle] 1 each PO BID #14 cap.sprink 03/04/19 [Rx] levoFLOXacin [Levaquin] 750 mg PO DAILY #7 tablet 03/04/19 [Rx] Allergies/Adverse Reactions: Allergy/AdvReac Type Severity Reaction Status Date / Time No Known Allergies Allergy Verified 03/01/19 18:46 Date of admission: 03/02/19 12:48 Primary care physician: Rico Esparza MD - Constitutional Vitals: Temp Pulse Resp BP Pulse Ox 98.4 F 92 20 144/72 95 03/04/19 07:26 03/04/19 07:26 03/04/19 07:26 03/04/19 07:26 03/04/19 09:07 - Patient Status Disposition: Home, Self-Care Condition: Fair - Discharge Instructions Follow Up With: Rico Esparza MD [Primary Care Provider] - 1 week - Diet and Activity Activity: resume usual activities as tolerated Diet: diabetic diet - VTE Documentation of Mechanical Device: Graduated compression elastic hosiery
== END 2019-03-04 12:33 | disposition home or self-care (01) | DRG 872 ==
LOC: INPPIK 13:24 → EMEROOPIK 13:24 → INPPIK 17:35
PROVIDERS: ADMIT Internal Medicine; ATTEND Internal Medicine